=== PATIENT | male | born 1950 | race Caucasian/White ===

== ENCOUNTER → 2018-01-27 | Outpatient (CLI) | payer MEDICARE | END | disposition home or self-care (01) | LOC: PCVCCLINIC 11:00 | PROVIDERS: ATTEND Internal Medicine | DX: I25.2 Old myocardial infarction (principal); R06.09 Other forms of dyspnea; I34.0 Nonrheumatic mitral (valve) insufficiency; E78.5 Hyperlipidemia, unspecified; I10 Essential (primary) hypertension; Z79.82 Long term (current) use of aspirin; Z87.891 Personal history of nicotine dependence | CPT/HCPCS: 93005; G0463 ==

== ENCOUNTER → 2018-02-01 | Outpatient (CLI) | payer MEDICARE ==
[~2018-02-01] MED LIST: REGADENOSON 0.4 MG/5 ML DISP.SYRIN. IV ONE
--- NOTE | 2018-02-01 10:54 | PCVCIMAG ---
APPROVED REPORT Study performed: 02/01/2018 08:31:43 EXAM: Comprehensive 2D, Doppler, and color-flow Echocardiogram Patient Location: Echo lab Status: routine BSA: 2.00 BP: 160/100 mmHg Rhythm: NSR Other Information Study Quality: Good Risk Factors: Cardiac Risk Factors: HTN, Hyperlipidemia Indications Dyspnea Fatigue History of myocardial infarction 2D Dimensions IVSd: 10.30 (7-11mm)LVOT Diam: 22.12 (18-24mm) LVDd: 56.03 mm PWd: 6.06 (7-11mm)Ascending Ao: 32.62 (22-36mm) LVDs: 46.91 (25-40mm) Left Atrium: 36.64 (27-40mm) Aortic Root: 31.67 mm LV Single Plane 4CH: 55.36 % LV Single Plane 2CH: 52.63 % Biplane EF: 53.0 % Volumes Left Atrial Volume (Systole) Single Plane 4CH: 34.64 mLSingle Plane 2CH: 25.96 mL LA ESV Index: 17.00 mL/m2 Aortic Valve AoV Peak Dmitry.: 1.34 m/s AO Peak Gr.: 7.23 mmHgLVOT Max P.22 mmHg LVOT Max V: 1.14 m/s FAVIAN Vmax: 3.26 cm2 Mitral Valve E/A Ratio: 0.6 MV Decel. Time: 298.44 ms MV E Max Dmitry.: 0.55 m/s MV A Dmitry.: 0.95 m/s IVRT: 148.79 ms Pulmonary Valve PV Peak Gr.: 4.38 mmHg Pulmonary Vein P Vein S: 0.63 m/sP Vein A: 0.40 m/s P Vein D: 0.50 m/sP Vein A Dur.: 110.7 msec P Vein S/D Ratio: 1.26 Left Ventricle The left ventricle is normal size. There is normal LV segmental wall motion. There is normal left ventricular wall thickness. Left ventricular systolic function is normal. The left ventricular ejection fraction is within the normal range. LVEF is >55%. The left ventricular diastolic function is normal. Right Ventricle The right ventricle is normal size. The right ventricular systolic function is normal. Atria The left atrium size is normal. The right atrium size is normal. Aortic Valve The aortic valve is normal in structure. Trace aortic regurgitation. There is no aortic valvular stenosis. Mitral Valve The mitral valve is normal in structure. There is no mitral valve regurgitation noted. No evidence of mitral valve stenosis. Tricuspid Valve The tricuspid valve is normal in structure. There is no tricuspid valve regurgitation noted. Pulmonic Valve The pulmonary valve is normal in structure. Trace pulmonic regurgitation. Great Vessels The aortic root is normal in size. IVC is normal in size and collapses >50% with inspiration. Pericardium There is no pericardial effusion. <Conclusion> The left ventricle is normal size. LVEF is >55%. The aortic valve is normal in structure. Trace aortic regurgitation. The mitral valve is normal in structure. There is no mitral valve regurgitation noted. The tricuspid valve is normal in structure. There is no tricuspid valve regurgitation noted. The pulmonary valve is normal in structure. Trace pulmonic regurgitation. There is no pericardial effusion.
--- NOTE | 2018-02-01 13:07 | PCVCIMAG ---
APPROVED REPORT Imaging Protocol: Rest Tc-99m/Stress Tc-99m 1 day Study performed: 02/01/2018 09:55:29 Indication: CAD, Pre Op, Abn EKG Patient Location: Out-Patient Stress Nurse: Ivon Alexandra RN VA Tech:Lorenzo Schaefer NMTCB Ht: 6 ft 0 in Wt: 172 lbs BSA: 2.00 m2 HR: 72 bpm BP: 179/94 mmHg BMI: 23.3 Rhythm: NSR Medical History Medical History: Age, HTN, CAD, [place], Former Smoker, Asthma Medications: Losartan, Symbicort, Amlodipine, Crestor Allergies: No known drug allergies Exercise History: Sedentary Physical Disabilities: Neck Meds Held (24 hrs): Amlodipine Resting Data Rest SPECT myocardial perfusion imaging was performed in supine position 45 minutes following the intravenous injection of 11.4 mCi of Tc-99m Sestamibi. Time of rest injection: 0930 Administration Route: IV Administration Site: Right AC Pharmacologic Stress Pharmacologic stress test was performed by injecting Regadenoson 0.4 mg IV push over 10-15 seconds immediately followed by the intravenous injection of 32.4 mCi of Tc-99m Sestamibi. Time of stress injection: 1040 Administration Route: IV Administration Site: Right AC Gated Stress SPECT was performed 45 minutes after stress injection. The images were gated to evaluate regional wall motion and calculate left ventricular ejection fraction. Stress Test Details Stress Test: Pharmacologic stress was paired with low level exercise. Reason for pharmacologic stress test: Cervical Spine Stenosis. HRMax Heart Rate (APMHR): 155 bpm Resting HR: 72 bpmTarget HR (85% APMHR): 131 bpm Max HR Achieved: 113 bpm % of APMHR: 72 Recovery HR: 74 bpm BP Resting BP: 179/94 mmHg Recovery BP: 161/95 mmHg ECG Resting ECG: Sinus Rhythm Stress ECG: Sinus Tachycardia Arrhythmia: None Recovery ECG: Sinus Rhythm Clinical Reason for Termination: Completed protocol Stress Symptoms: Lightheaded Exercise duration: 4 min 00 sec Exercise capacity: 1.6 METs Symptoms resolved during recovery. Nurse Comments Instructed patient to take amlodipine after returning home Stress ECG Conclusion 1. Adequate response to intravenous Lexiscan 2. Inadequate heart rate for ECG diagnosis Study Data Post stress, the left ventricular ejection was 52%.. SSS: 0 SRS: 0 SDS: 0 TID = 1.05. Perfusion There is a large area of severely reduced uptake in the entire segment of the inferior wall which is seen on the stress images as well as the resting images. This area thickens and moves normally and is most consistent with attenuation artifact. Nuclear Conclusion ECG Findings: non-diagnostic Clinical Findings: negative for ischemia Nuclear Findings: negative for ischemia Exercise Capacity: not assessed Left Ventricular Function: normal 1. Low risk study Interpreted by: Agueda Bee MD Electronically Approved: 02/01/2018 13:07:10 <Conclusion> 1. Adequate response to intravenous Lexiscan 2. Inadequate heart rate for ECG diagnosis
== END | disposition home or self-care (01) ==
LOC: PCVCIMAG 08:29
PROVIDERS: ATTEND Internal Medicine
DX: I10 Essential (primary) hypertension (principal); I21.9 Acute myocardial infarction, unspecified; R06.09 Other forms of dyspnea
CPT/HCPCS: 78452; 93017; 93306; A9500; J2785